=== PATIENT | female | born 1955 | race Caucasian/White ===

== ENCOUNTER 2024-02-09 09:09 | Outpatient (RCR) | payer MEDICARE, SELFPAY ==
[2024-02-09 09:20] VITALS: BP 151/87
[2024-02-09] MEDS: RECLAST 100 IV (09:24)
[2024-02-09 09:57] VITALS: BP 134/87
== END 2024-02-10 09:31 | disposition home or self-care (01) ==
LOC: OID 09:09
PROVIDERS: ATTENDING PHYSICIAN Internal Medicine Endocrinology, Diabetes & Metabolism; FAMILY PHYSICIAN Internal Medicine
DX: M81.0 Age-related osteoporosis without current pathological fracture (principal)
CPT/HCPCS: 96365; J3489